=== PATIENT | female | born 1985 | race Caucasian/White ===

== ENCOUNTER 2017-11-13 12:05 | Emergency (ER) | payer OTHER ==
[~2017-11-13] VITALS: Ht 170.2 cm; Wt 65.8 kg
[~2017-11-13 12:05] MED LIST: ALBU90OI; ALBU90OI INH; AMOX500 PO; AZIT250 PO; Amoxicillin875 MG PO; CEPH500 PO; DEXGUASY PO; FLUSAL1005; Flonase 0.05% N16 GM; HYDACE5 PO; IBUP200; MEDR150I; METO5A PO; MULVITMINE; NAPR500 PO; NYSTRI30T TOP; OXYACE5T PO; OXYC1L PO; PENVK500 PO; PRED20 PO; PROM25 PO; RXHYDACE PO; RXPROM25 PO; RXSULTRIDS PO; SULTRIDS PO
[2017-11-13] MEDS ORDERED: Naprosyn500 MG PO (13:02)
[2017-11-13] MEDS ORDERED: Augmentin 875-1 EACH PO (13:02)
== END 2017-11-13 13:06 | disposition home or self-care (01) ==
LOC: ER 12:05
DX: K04.7 Periapical abscess without sinus (principal); K02.9 Dental caries, unspecified; F17.200 Nicotine dependence, unspecified, uncomplicated; Z88.5 Allergy status to narcotic agent
CPT/HCPCS: 99282

== ENCOUNTER 2018-10-05 10:37 | Emergency (ER) | payer OTHER ==
[~2018-10-05] VITALS: Ht 167.6 cm; Wt 82.5 kg
[~2018-10-05 10:37] MED LIST changes: +Augmentin 875-1 EACH PO; +Cleocin HCl300 MG PO; +Naprosyn500 MG PO
[2018-10-05] MEDS ORDERED: Roxicodone5 MG PO (12:34)
== END 2018-10-05 12:44 | disposition home or self-care (01) ==
LOC: ER 10:37
DX: O99.89 Other specified diseases and conditions complicating pregnancy, childbirth and the puerperium (principal); M25.552 Pain in left hip; O99.332 Smoking (tobacco) complicating pregnancy, second trimester; Z3A.22 22 weeks gestation of pregnancy
CPT/HCPCS: 99283